=== PATIENT | female | born 1955 | race African-American/Black ===

== ENCOUNTER 2018-01-20 13:02 | Emergency (ER) | payer MEDICAID ==
[~2018-01-20] VITALS: Ht 172.7 cm; Wt 85.3 kg
[2018-01-20 13:25] VITALS: Ht 172.7 cm; Wt 85.3 kg
[2018-01-20 17:52] VITALS: BP 120/84
== END 2018-01-20 17:52 | disposition home or self-care (01) ==
LOC: ED 13:02
DX: S16.1XXA Strain of muscle, fascia and tendon at neck level, initial encounter (principal); S63.611A Unspecified sprain of left index finger, initial encounter; S29.012A Strain of muscle and tendon of back wall of thorax, initial encounter; J45.909 Unspecified asthma, uncomplicated; V49.88XA Car occupant (driver) (passenger) injured in other specified transport accidents, initial encounter; Y93.89 Activity, other specified; Y92.89 Other specified places as the place of occurrence of the external cause; Y99.8 Other external cause status
CPT/HCPCS: Q0092

== ENCOUNTER 2018-12-31 04:25 | Emergency (ER) | payer MEDICAID ==
[~2018-12-31] VITALS: Ht 170.2 cm; Wt 79.4 kg
[2018-12-31 04:37] VITALS: Ht 170.2 cm; Wt 79.4 kg
[2018-12-31 06:33] VITALS: BP 147/83
== END 2018-12-31 06:33 | disposition home or self-care (01) ==
LOC: ED 04:25
DX: S93.401A Sprain of unspecified ligament of right ankle, initial encounter (principal); J45.909 Unspecified asthma, uncomplicated; Z91.012 Allergy to eggs; Z91.013 Allergy to seafood; Z91.018 Allergy to other foods; W22.8XXA Striking against or struck by other objects, initial encounter; Y93.89 Activity, other specified; Y92.89 Other specified places as the place of occurrence of the external cause; Y99.8 Other external cause status
CPT/HCPCS: J1885